=== PATIENT | female | born 1965 | race Caucasian/White ===

== ENCOUNTER → 2022-02-01 | Emergency (ER) | payer OTHER ==
[~2022-02-01] VITALS: Ht 167.6 cm; Wt 72.6 kg
[~2022-02-01] MED LIST: LUNESTA1 MG
== END | disposition home or self-care (01) ==
LOC: ER 19:00
DX: S01.122A Laceration with foreign body of left eyelid and periocular area, initial encounter (principal); W18.30XA Fall on same level, unspecified, initial encounter; Y93.01 Activity, walking, marching and hiking; Y92.480 Sidewalk as the place of occurrence of the external cause